=== PATIENT | male | born 2000 | race Caucasian/White ===

== ENCOUNTER 2022-05-26 08:29 | Emergency (ER) | payer OTHER ==
[2022-05-26] MEDS ORDERED: diphenhydrAMINE HCL 25 MG CAPSULE (FP) PO ONE (08:31)
[2022-05-26] MEDS ORDERED: diphenhydrAMINE HCL 50 MG CAPSULE ONE (08:45)
[2022-05-26 09:07] VITALS: BP 118/66; PULSE 90; RESP 18; TEMP 99; BMI 26.2
== END 2022-05-26 11:50 | disposition home or self-care (01) ==
LOC: FER 08:29
DX: T78.40XA Allergy, unspecified, initial encounter (principal)
CPT/HCPCS: 99283-25